=== PATIENT | male | born 1985 | race Caucasian/White ===

== ENCOUNTER 2020-01-31 08:38 | Emergency (ER) | payer OTHER ==
[2020-01-31] MEDS ORDERED: SODIUM CHLORIDE 0.9% 1,000 ML IV STA (09:08)
[2020-01-31] MEDS ORDERED: MORPHINE 2 MG/ML CARPUJECT IVP STA (09:08)
[2020-01-31] MEDS ORDERED: ASPIRIN CHEW 81 MG TABLET PO STA (09:08)
[2020-01-31] MEDS ORDERED: NITROGLYCERIN SL 0.4 MG TABLET SL STA (09:08)
[2020-01-31] MEDS ORDERED: HEPARIN 25000UNITS/500ML (D5W) 25,000 UNIT/500 ML BAG IV STA (09:13)
[2020-01-31] MEDS ORDERED: HEPARIN 5,000 UNIT/ML VIAL IVP STA (09:13)
[2020-01-31] MEDS ORDERED: CLOPIDOGREL 300 MG TABLET PO STA (09:13)
--- NOTE | 2020-01-31 09:13 | ED Physician Documentation ---
PD HPI CHEST PAIN - Stated complaint Stated Complaint: CHEST PX - Chief complaint Chief Complaint: Cardiac - History obtained from History obtained from: Patient - History of Present Illness Timing - onset: How many hours ago (1) Timing - onset during: Light activity (he was walking up some stairs and had abrupt onset chest pain, lightheaded, nausea, sweaty.) Timing - duration: Hours (1) Timing - details: Abrupt onset, Still present Quality: Pressure, Tightness Location: Substernal, Left chest Radiation: Neck Improved by: No: Rest Review of Systems Constitutional: denies: Fever, Chills Nose: denies: Rhinorrhea / runny nose, Congestion Throat: denies: Sore throat Cardiac: reports: Chest pain / pressure (just this morning. No recent exertional CP nor dyspnea.). denies: Palpitations, Pedal edema, Calf pain Respiratory: reports: Dyspnea. denies: Cough, Wheezing GI: denies: Nausea, Diarrhea Skin: denies: Rash (He has not had any rash for about a year.) Neurologic: reports: Headache. denies: Generalized weakness, Focal weakness, Numbness, Near syncope Psychiatric: denies: Depressed Endocrine: denies: Easy bruising / bleeding Immunocompromised: reports: Immunocompromised. denies: Chemotherapy PD PAST MEDICAL HISTORY - Past Medical History Cardiovascular: Hypertension Respiratory: None Neuro: None Endocrine/Autoimmune: None Musculoskeletal: Other (HSP for the past year and is on methotrexate for the past year with stable) - Allergies Allergies/Adverse Reactions: Allergies Allergy/AdvReac Type Severity Reaction Status Date / Time No Known Drug Allergies Allergy Verified 01/31/20 08:41 - Living Situation Living Situation: reports: With spouse/s.o. Living Arrangement: reports: At home - Social History Does the pt smoke?: No Does the pt have substance abuse?: No - Family History Family history: denies: CAD, Sudden PD ED PE NORMAL - Vitals Vital signs reviewed: Yes - General General: Alert and oriented X 3, Well developed/nourished, Other (pale and in pain) - HEENT HEENT: Pharynx benign - Neck Neck: Supple, no meningeal sign, No adenopathy - Cardiac Cardiac: RRR, No murmur - Respiratory Respiratory: Clear bilaterally, Other (no chestwall tenderness) - Abdomen Abdomen: Soft, Non tender - Male Male : Deferred - Rectal Rectal: Deferred - Derm Derm: Warm and dry. No: Normal color (pale) - Extremities Extremities: No deformity, No tenderness to palpate, No edema, No calf tenderness / cord - Neuro Neuro: Alert and oriented X 3, No motor deficit, No sensory deficit, Normal speech Results - Vitals Vitals: Vital Signs - 24 hr 01/31/20 08:41 Temperature 36.6 C Heart Rate 97 Respiratory 20 Rate Blood Pressure 152/103 H O2 Saturation 98 Oxygen O2 Source Room air - EKG (time done) 08:53 Rate: Rate (enter#) (93) Rhythm: NSR [place]: Normal Intervals: Normal [place] QRS: Normal Ischemia: ST elevation c/w ischemia (inferiorly, mostly III but also II and aVF; no reciprocal changes). No: ST depression - Rads (name of study) chest xraY Radiology: Prelim report reviewed, EMP read contemporaneously (no acute process), See rad report PD MEDICAL DECISION MAKING - ED course Complexity details: reviewed results, re-evaluated patient (The patient walked in through triage and was triaged in a typical fashion. EKG was done in a timely fashion and there was short few minutes of deliberation on my part to consult with the physician in [facility] prior to calling the STEMI so was slightly off our nabor on time.), considered differential (Abrupt onset of symptoms suggestive of OH with an EKG showing inferior changes with ST elevations. We will treated as a STEMI at this point. Alternatives would be an aortic process or pericarditis. He has not had any recent cold cough or flu symptoms and chest x-ray does not have a pneumonia appearance so no obvious coronavirus. 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 This would not preclude the clotting of a coronary vessel.), d/w patient, d/w human resources consultant (I talked with the ER physician at [facility] who also reviewed the EKG and we decided together to treat this as a STEMI.) - Critical Care Time(min): 30 Time Includes: Direct patient care, Reassess patient, Document care, Coordinate care, Medical consult Data interpretation: CXR, Prior EKG Procedures excluded from critical care time: EKG Departure - Departure Disposition: 02 Transfer Acute Care Hosp Clinical Impression: STEMI (ST elevation myocardial infarction) Qualifiers: Involved coronary artery: left circumflex coronary artery Qualified Code(s): I21.21 - ST elevation (STEMI) myocardial infarction involving left circumflex coronary artery Condition: Stable Record reviewed to determine appropriate education?: Yes
[2020-01-31 09:19] LABS: BASOPHILS # (AUTO) 0.1 10^3/uL (0.0-0.1); BASOPHILS % (AUTO) 0.5 %; EOSINOPHILS # (AUTO) 0.1 10^3/uL (0.0-0.7); EOSINOPHILS % (AUTO) 1.3 %; HGB - HEMOGLOBIN 17.6 g/dL (14.0-18.0); LYMPHOCYTES # (AUTO) 1.6 10^3/uL (1.5-3.5); LYMPHOCYTES % (AUTO) 16.1 %; MEAN CORPUSCULAR HEMOGLOBIN 32.6 pg (27.0-31.0); MEAN CORPUSCULAR HGB CONC 36.8 g/dL (32.0-36.0); MEAN CORPUSCULAR VOLUME 88.5 fL (80.0-94.0); MEAN PLATELET VOLUME 9.6 fL (7.4-11.4); MONOCYTES # (AUTO) 0.7 10^3/uL (0.0-1.0); MONOCYTES % (AUTO) 6.7 %; NEUTROPHILS # (AUTO) 7.2 10^3/uL (1.5-6.6); NEUTROPHILS % (AUTO) 75.1 %; PLT - PLATELET COUNT 316 10^3/uL (130-450); RED CELL DISTRIBUTION WIDTH 13.5 % (12.0-15.0); WHITE BLOOD COUNT 9.7 x10^3/uL (4.8-10.8)
--- NOTE | 2020-01-31 09:22 | XRAY Report ---
Reason: Chest Pain Procedure Date: 01/31/2020 Accession Number: [id number] / [id number] Procedure: XR - Chest 1 View X-Ray CPT Code: 77842 Final Report FULL RESULT: EXAM: CHEST RADIOGRAPHY EXAM DATE: 01/31/2020 09:05 AM. CLINICAL HISTORY: Chest Pain. COMPARISON: None. TECHNIQUE: 1 view. FINDINGS: Lungs/Pleura: No focal opacities evident. No pleural effusion. No pneumothorax. Mediastinum: Within exam limitations, the cardiomediastinal contour is normal. Other: Metallic structure overlies the lower neck probably external to the body. EKG leads overlie the chest. IMPRESSION: 1. No acute pulmonary process. RADIA
[2020-01-31 09:37] LABS: ALBUMIN 4.5 g/dL (3.2-5.5); ALBUMIN/GLOBULIN RATIO 1.5 (1.0-2.2); BILIRUBIN,TOTAL 1.3 mg/dL (0.2-1.0); CALCIUM 9.3 mg/dL (8.5-10.3); CREATININE 1.2 mg/dL (0.6-1.2); MAGNESIUM 2.2 mg/dL (1.7-2.8); TOTAL PROTEIN 7.6 g/dL (6.7-8.2)
[2020-01-31 09:42] VITALS: BP 152/105
== END 2020-01-31 09:31 | disposition short-term general hospital (02) ==
LOC: ED 08:38
DX: I21.21 ST elevation (STEMI) myocardial infarction involving left circumflex coronary artery (principal); I10 Essential (primary) hypertension; Z86.2 Personal history of diseases of the blood and blood-forming organs and certain disorders involving the immune mechanism
CPT/HCPCS: 36415; 71045; 80053; 83690; 83735; 84484; 85025; 85651; 93005; 96374; 96375; 99285; 99291; A9270

== ENCOUNTER 2020-01-31 09:32 | Outpatient (CLI) | payer OTHER | END 2020-01-31 09:33 | disposition short-term general hospital (02) | LOC: EMS 09:32 | PROVIDERS: ATTEND Surgery | DX: I21.4 Non-ST elevation (NSTEMI) myocardial infarction (principal) | CPT/HCPCS: A0425; A0426 ==

== ENCOUNTER 2020-02-14 12:03 | Emergency (ER) | payer OTHER ==
[2020-02-14 12:38] LABS: BASOPHILS # (AUTO) 0.1 10^3/uL (0.0-0.1); BASOPHILS % (AUTO) 1.2 %; EOSINOPHILS # (AUTO) 0.1 10^3/uL (0.0-0.7); EOSINOPHILS % (AUTO) 1.5 %; HGB - HEMOGLOBIN 17.6 g/dL (14.0-18.0); LYMPHOCYTES # (AUTO) 1.2 10^3/uL (1.5-3.5); LYMPHOCYTES % (AUTO) 20.4 %; MEAN CORPUSCULAR HEMOGLOBIN 32.5 pg (27.0-31.0); MEAN CORPUSCULAR VOLUME 90.4 fL (80.0-94.0); MEAN PLATELET VOLUME 9.8 fL (7.4-11.4); MONOCYTES # (AUTO) 0.6 10^3/uL (0.0-1.0); MONOCYTES % (AUTO) 9.3 %; NEUTROPHILS % (AUTO) 67.3 %; PLT - PLATELET COUNT 311 10^3/uL (130-450); RED BLOOD COUNT 5.41 10^6/uL (4.70-6.10); RED CELL DISTRIBUTION WIDTH 13.3 % (12.0-15.0); WHITE BLOOD COUNT 5.9 x10^3/uL (4.8-10.8)
[2020-02-14] MEDS ORDERED: IBUPROFEN 800 MG TABLET PO STA (12:47)
--- NOTE | 2020-02-14 12:49 | ED Physician Documentation ---
PD HPI CHEST PAIN - Stated complaint Stated Complaint: CHEST PAIN - Chief complaint Chief Complaint: Cardiac - History obtained from History obtained from: Patient - History of Present Illness Timing - onset: How many hours ago (2.5) Timing - onset during: Light activity Timing - duration: Hours (2.5) Timing - details: Abrupt onset Pain level max: 5 Pain level now: 4 Quality: Pressure, Aching Location: Substernal Radiation: No: Jaw, Neck, Back, Abdominal, Left upper extremity, Right upper extremity Improved by: Nothing Worsened by: Other (nothing) Associated symptoms: No: Shortness of air, Diaphoresis, Nausea, Vomiting, Feeling faint / dizzy, General Weakness, Palpitations, Cough Similar symptoms before: Diagnosis (pericarditis/myocarditis) Recently seen: Admitted (recently admitted to [facility] for same and states normal cardiac cath. States diagnosed with pericarditis/myocarditis. Currently on colchicine and stopped motrin last week.) Review of Systems Ten Systems: 10 systems reviewed and negative Constitutional: denies: Fever, Chills Ears: denies: Ear pain Nose: denies: Rhinorrhea / runny nose, Congestion Cardiac: denies: Chest pain / pressure Respiratory: denies: Cough GI: denies: Vomiting, Diarrhea : denies: Dysuria Skin: denies: Rash Musculoskeletal: denies: Neck pain, Back pain Neurologic: denies: Headache PD PAST MEDICAL HISTORY - Past Medical History Past Medical History: Yes Cardiovascular: Hypertension, Other Respiratory: None Neuro: None Endocrine/Autoimmune: Other GI: None : None Psych: None Musculoskeletal: Other Other Past Medical History: pericarditis 01/2020 - Past Surgical History Past Surgical History: Yes Cardiovascular: Cardiac catheterization - Present Medications Home Medications: Ambulatory Orders Medication Instructions Recorded Confirmed Colchicine 0.6 mg PO BID 02/14/20 02/14/20 Folic Acid 1 mg PO DAILY 02/14/20 02/14/20 Ibuprofen [Motrin] 800 mg PO Q8H PRN #30 tablet 02/14/20 Lisinopril [Zestril] 20 mg PO DAILY 02/14/20 02/14/20 azaTHIOprine [Azathioprine] 100 mg PO DAILY 02/14/20 02/14/20 metHOTREXate sodium [Trexall] 15 mg PO ONCE 02/14/20 02/14/20 - Allergies Allergies/Adverse Reactions: Allergies Allergy/AdvReac Type Severity Reaction Status Date / Time No Known Drug Allergies Allergy Verified 01/31/20 08:41 - Social History Does the pt smoke?: No Smoking Status: Former smoker Does the pt drink ETOH?: No Does the pt have substance abuse?: No - Immunizations Immunizations are current?: Yes - POLST Patient has POLST: No PD ED PE NORMAL - Vitals Vital signs reviewed: Yes - General General: Alert and oriented X 3, No acute distress - HEENT HEENT: Moist mucous membranes - Neck Neck: Supple, no meningeal sign - Cardiac Cardiac: RRR, No murmur, Strong equal pulses - Respiratory Respiratory: No respiratory distress, Clear bilaterally - Abdomen Abdomen: Soft, Non tender, Non distended - Derm Derm: Warm and dry - Extremities Extremities: No edema - Neuro Neuro: Alert and oriented X 3 - Psych Psych: Normal mood, Normal affect Results - Vitals Vitals: Vital Signs - 24 hr 02/14/20 02/14/20 02/14/20 12:08 12:37 12:47 Temperature 36.8 C 36.9 C Heart Rate 83 85 89 Respiratory 16 16 18 Rate Blood Pressure 147/94 H 139/97 H 139/97 H O2 Saturation 100 95 98 02/14/20 02/14/20 02/14/20 13:06 13:30 14:00 Temperature Heart Rate 75 79 79 Respiratory 20 14 19 Rate Blood Pressure 145/91 H 154/94 H 144/92 H O2 Saturation 94 95 95 Oxygen O2 Source Room air - EKG (time done) 1208 Rate: Rate (enter#) (81) Rhythm: NSR [place]: Normal Intervals: Normal [place] QRS: Normal Ischemia: ST elevation c/w repol - Labs Labs: Laboratory Tests 02/14/20 02/14/20 02/14/20 12:30 12:30 12:30 WBC 5.9 RBC 5.41 Hgb 17.6 Hct 48.9 MCV 90.4 MCH 32.5 H MCHC 36.0 RDW 13.3 Plt Count 311 MPV 9.8 Neut # (Auto) 4.0 Lymph # (Auto) 1.2 L [place] # (Auto) 0.6 Eos # (Auto) 0.1 Baso # (Auto) 0.1 Absolute Nucleated RBC 0.00 Nucleated RBC % 0.0 Sodium 138 Potassium 3.6 Chloride 99 L Carbon Dioxide 27 Anion Gap 12.0 BUN 6 Creatinine 1.1 Estimated GFR (MDRD) 76 L Glucose 103 H Calcium 9.2 Total Bilirubin 1.2 H AST 59 H ALT 66 H Alkaline Phosphatase 54 Troponin I High Sens 10.9 Total Protein 8.0 Albumin 4.6 Globulin 3.4 Albumin/Globulin Ratio 1.4 Lipase 32 - Rads (name of study) cxr Radiology: Prelim report reviewed, EMP read contemporaneously, See rad report (no acute disease) PD MEDICAL DECISION MAKING - ED course Complexity details: reviewed old records, reviewed results, re-evaluated patient, considered differential, d/w patient, d/w consultant dietitian (Dr. Griffin (cardiology)) ED course: Patient is a 34-year-old male who presents with chest pain. He was recently seen at [facility] where he was diagnosed with pericarditis/myocarditis. Has a history of IgA vasculitis. Normal high- sensitivity troponin here. Pain resolved with Motrin. Discussed the case with cardiology who recommends follow-up in the office and restart on Motrin. Patient did have a clean cardiac cath at [facility]. Patient counseled regarding signs and symptoms for which I believe and urgent re- evaluation would be necessary. Patient with good understanding of and agreement to plan and is comfortable going home at this time This document was made in part using voice recognition software. While efforts are made to proofread this document, sound alike and grammatical errors may occur. Departure - Departure Disposition: 01 Home, Self Care Clinical Impression: Chest pain Qualifiers: Chest pain type: unspecified Qualified Code(s): R07.9 - Chest pain, unspecified Condition: Good Instructions: ED Chest Pain Atypical Unkn Cause Follow-Up: DEANNA SOTO MD [Primary Care Provider] - Britta Griffin MD [Physician No Access] - Prescriptions: Ibuprofen [Motrin] 800 mg PO Q8H PRN #30 tablet PRN Reason: PAIN &/OR FEVER Comments: Return if you worsen. You can use Motrin as needed for pain. Follow-up with cardiology for further care. Continue your colchicine as well. Discharge Date/Time: 02/14/20 14:15
--- NOTE | 2020-02-14 12:50 | XRAY Report ---
Reason: Chest Pain Procedure Date: 02/14/2020 Accession Number: [id number] / [id number] Procedure: XR - Chest 1 View X-Ray CPT Code: 33660 Final Report FULL RESULT: PROCEDURE: Chest 1 View X-Ray INDICATIONS: Chest Pain TECHNIQUE: One view of the chest was acquired. COMPARISON: 01/31/2020 FINDINGS: Surgical changes and devices: None. Lungs and pleura: No pleural effusions or pneumothorax. Lungs are clear. Mediastinum: Mediastinal contours appear normal. Heart size is normal. Bones and chest wall: No suspicious bony lesions. Overlying soft tissues appear unremarkable. IMPRESSION: No acute cardiopulmonary disease process. Reviewed by: Wendy Goff MD, PhD on 02/14/2020 12:46 PM PDT Approved by: Wendy Goff MD, PhD on 02/14/2020 12:46 PM PDT Station ID: [id number]
[2020-02-14 13:02] LABS: ALBUMIN 4.6 g/dL (3.2-5.5); ALBUMIN/GLOBULIN RATIO 1.4 (1.0-2.2); BILIRUBIN,TOTAL 1.2 mg/dL (0.2-1.0); CALCIUM 9.2 mg/dL (8.5-10.3); CREATININE 1.1 mg/dL (0.6-1.2)
[2020-02-14 14:05] VITALS: BP 144/92
== END 2020-02-14 14:15 | disposition home or self-care (01) ==
LOC: ED 12:03
DX: R07.89 Other chest pain (principal); I10 Essential (primary) hypertension; Z86.79 Personal history of other diseases of the circulatory system; Z98.61 Coronary angioplasty status; Z87.891 Personal history of nicotine dependence
CPT/HCPCS: 36415; 71045; 80053; 83690; 84484; 85025; 93005; 99284; A9270

== ENCOUNTER 2020-11-02 12:23 | Emergency (ER) | payer OTHER ==
[2020-11-02] MEDS ORDERED: ASPIRIN CHEW 81 MG TABLET PO STA (12:44)
[2020-11-02] MEDS ORDERED: NITROGLYCERIN SL 0.4 MG TABLET SL STA (12:44)
[2020-11-02] MEDS ORDERED: MORPHINE 2 MG/ML CARPUJECT IVP STA ×2 (12:44→13:15)
[2020-11-02 12:49] LABS: BASOPHILS # (AUTO) 0.1 10^3/uL (0.0-0.1); BASOPHILS % (AUTO) 0.8 %; EOSINOPHILS # (AUTO) 0.2 10^3/uL (0.0-0.7); EOSINOPHILS % (AUTO) 1.3 %; HGB - HEMOGLOBIN 17.7 g/dL (14.0-18.0); LYMPHOCYTES # (AUTO) 2.7 10^3/uL (1.5-3.5); LYMPHOCYTES % (AUTO) 22.2 %; MEAN CORPUSCULAR HEMOGLOBIN 29.8 pg (27.0-31.0); MEAN CORPUSCULAR HGB CONC 34.8 g/dL (32.0-36.0); MEAN CORPUSCULAR VOLUME 85.7 fL (80.0-94.0); MEAN PLATELET VOLUME 9.3 fL (7.4-11.4); MONOCYTES # (AUTO) 1.3 10^3/uL (0.0-1.0); MONOCYTES % (AUTO) 10.5 %; NEUTROPHILS # (AUTO) 7.9 10^3/uL (1.5-6.6); NEUTROPHILS % (AUTO) 64.3 %; PLT - PLATELET COUNT 355 10^3/uL (130-450); RED BLOOD COUNT 5.93 10^6/uL (4.70-6.10); RED CELL DISTRIBUTION WIDTH 12.4 % (12.0-15.0); WHITE BLOOD COUNT 12.2 x10^3/uL (4.8-10.8)
--- NOTE | 2020-11-02 12:55 | ED Physician Documentation ---
PD HPI CHEST PAIN - Stated complaint Stated Complaint: chest px - Chief complaint Chief Complaint: Cardiac - History obtained from History obtained from: Patient - History of Present Illness Timing - onset: Today Pain level max: 8 Pain level now: 8 Quality: Pressure, Tightness, Aching Location: Substernal Radiation: No: Jaw, Neck, Back, Abdominal, Left upper extremity, Right upper extremity Improved by: Nitro Worsened by: Other (noting) Associated symptoms: Diaphoresis, Nausea, General Weakness. No: Shortness of air, Vomiting, Palpitations - Additional information Additional information: 35-year-old male presents to the emergency department stating he has had intermittent chest pain since this morning. Became constant about 45 minutes prior to arrival. He states that it is substernal, crushing, nonradiating. Improved with nitroglycerin. Has had this twice in the past. The first time was in January of last year, had a normal coronary angiogram at [facility]. The second time was in September of this year, seen in [place] had another coronary angiogram which was reportedly normal as well. He states he did run out of some of his medications at home so has not been taking all of them. Unclear what these medications are. Nothing makes the pain worse. Better with nitroglycerin. Did not take aspirin today. Review of Systems Ten Systems: 10 systems reviewed and negative Constitutional: denies: Fever, Chills Nose: denies: Rhinorrhea / runny nose, Congestion Throat: denies: Sore throat Cardiac: reports: Chest pain / pressure Respiratory: denies: Cough GI: denies: Nausea, Vomiting, Diarrhea Skin: denies: Rash Musculoskeletal: denies: Neck pain, Back pain Neurologic: denies: Headache PD PAST MEDICAL HISTORY - Past Medical History Cardiovascular: Hypertension, Other Respiratory: None Neuro: None Endocrine/Autoimmune: Other GI: None : None Psych: None Musculoskeletal: Other - Past Surgical History Past Surgical History: Yes Cardiovascular: Cardiac catheterization - Present Medications Home Medications: Ambulatory Orders Medication Instructions Recorded Confirmed Colchicine 0.6 mg PO BID 02/14/20 02/14/20 Folic Acid 1 mg PO DAILY 02/14/20 02/14/20 Ibuprofen [Motrin] 800 mg PO Q8H PRN #30 tablet 02/14/20 Lisinopril [Zestril] 20 mg PO DAILY 02/14/20 02/14/20 azaTHIOprine [Azathioprine] 100 mg PO DAILY 02/14/20 02/14/20 metHOTREXate sodium [Trexall] 15 mg PO ONCE 02/14/20 02/14/20 - Allergies Allergies/Adverse Reactions: Allergies Allergy/AdvReac Type Severity Reaction Status Date / Time No Known Drug Allergies Allergy Verified 01/31/20 08:41 - Social History Does the pt smoke?: No Smoking Status: Former smoker Does the pt drink ETOH?: No Does the pt have substance abuse?: No - Immunizations Immunizations are current?: Yes - POLST Patient has POLST: No PD ED PE NORMAL - Vitals Vital signs reviewed: Yes - General General: Alert and oriented X 3, No acute distress, Other (appears uncomfortable) - HEENT HEENT: Moist mucous membranes, Other - Neck Neck: Supple, no meningeal sign - Cardiac Cardiac: RRR, Strong equal pulses - Respiratory Respiratory: No respiratory distress, Clear bilaterally - Abdomen Abdomen: Soft, Non tender, Non distended - Derm Derm: Warm and dry - Extremities Extremities: No edema, No calf tenderness / cord - Neuro Neuro: Alert and oriented X 3 - Psych Psych: Normal mood, Normal affect Results - Vitals Vitals: Vital Signs - 24 hr 11/02/20 11/02/20 12:31 13:00 Temperature 36.6 C Heart Rate 88 84 Respiratory 18 18 Rate Blood Pressure 179/100 H 152/96 H O2 Saturation 97 96 Oxygen O2 Source Room air - EKG (time done) 1231 Rate: Rate (enter#) (87) Rhythm: NSR [place]: Normal Ischemia: ST elevation c/w ischemia (V2-4), ST depression (III) 1245 Rate: Rate (enter#) (87) Rhythm: NSR [place]: Normal Ischemia: ST elevation c/w ischemia (V2-5), ST depression (III, AVF) 1257 Rate: Rate (enter#) (78) Rhythm: NSR [place]: Normal Intervals: Normal [place] Ischemia: ST elevation c/w ischemia (V2-5), ST depression (III, aVF) - Labs Labs: Laboratory Tests 11/02/20 11/02/20 11/02/20 12:40 12:40 12:40 WBC 12.2 H RBC 5.93 Hgb 17.7 Hct 50.8 MCV 85.7 MCH 29.8 MCHC 34.8 RDW 12.4 Plt Count 355 MPV 9.3 Neut # (Auto) 7.9 H Lymph # (Auto) 2.7 [place] # (Auto) 1.3 H Eos # (Auto) 0.2 Baso # (Auto) 0.1 Absolute Nucleated RBC 0.00 Nucleated RBC % 0.0 PT INR APTT Sodium 138 Potassium 3.5 Chloride 100 L Carbon Dioxide 23 Anion Gap 15.0 H BUN 10 Creatinine 1.0 Estimated GFR (MDRD) 85 L Glucose 130 H Calcium 9.1 Total Bilirubin 0.9 AST 38 ALT 53 Alkaline Phosphatase 67 Troponin I High Sens 16.7 Total Protein 7.9 Albumin 4.5 Globulin 3.4 Albumin/Globulin Ratio 1.3 Lipase 32 11/02/20 13:15 WBC RBC Hgb Hct MCV MCH MCHC RDW Plt Count MPV Neut # (Auto) Lymph # (Auto) [place] # (Auto) Eos # (Auto) Baso # (Auto) Absolute Nucleated RBC Nucleated RBC % PT 14.2 H INR 1.3 H APTT > 240.0 H* Sodium Potassium Chloride Carbon Dioxide Anion Gap BUN Creatinine Estimated GFR (MDRD) Glucose Calcium Total Bilirubin AST ALT Alkaline Phosphatase Troponin I High Sens Total Protein Albumin Globulin Albumin/Globulin Ratio Lipase - Rads (name of study) cxr Radiology: Prelim report reviewed, EMP read contemporaneously, See rad report (no acute findings) PD MEDICAL DECISION MAKING - ED course Complexity details: reviewed results, re-evaluated patient, considered differential, d/w patient, d/w etl consultant (Dr. Larsen) ED course: Patient with intermittent chest pain throughout the morning. 2 normal coronary angiograms within the past 9 months. Serial EKGs do show dynamic changes and worsening of the ST elevation. Therefore this was treated as an ST elevation [place]. Differential would also include vasculitis, myocarditis, vasospasm, coronary artery dissection. Patient was given aspirin. Discussed Plavix with the ER at [facility], they suggest holding it at this time. Patient was also given nitroglycerin. 20 mg of diltiazem per cardiology, started on a nitroglycerin drip and heparin drip. Pain improved. Patient did have a short run of what appeared to be ventricular tachycardia while in the emergency department, lasted about 15 seconds. Pain is improved, down to a 2-3 out of 10. Patient trans ported to [facility] for further care. Activated as a STEMI. Discussed with Dr. Larsen, ER physician at [facility] who graciously accepts in transfer. COBRA forms completed Departure - Departure Disposition: 02 Transfer Acute Care Hosp Clinical Impression: STEMI (ST elevation myocardial infarction) Qualifiers: Involved coronary artery: unspecified coronary artery Qualified Code(s): I21.3 - ST elevation (STEMI) myocardial infarction of unspecified site Condition: Stable Discharge Date/Time: 11/02/20 13:25
[2020-11-02] MEDS ORDERED: HEPARIN 25000UNITS/500ML (D5W) 25,000 UNIT/500 ML BAG IV SCH (13:00)
[2020-11-02] MEDS ORDERED: DILTIAZEM 125 MG in DEXTROSE 5% 100 ML IV STA (13:00)
[2020-11-02] MEDS ORDERED: NITROGLYCERIN 50 MG/250 ML 50 MG/250 ML BOTTLE IV STA (13:01)
[2020-11-02 13:03] LABS: ALBUMIN 4.5 g/dL (3.2-5.5); ALBUMIN/GLOBULIN RATIO 1.3 (1.0-2.2); BILIRUBIN,TOTAL 0.9 mg/dL (0.2-1.0); CALCIUM 9.1 mg/dL (8.5-10.3); TOTAL PROTEIN 7.9 g/dL (6.7-8.2)
[2020-11-02] MEDS ORDERED: diltiaZEM INJ 5 MG/ML VIAL IVP STA (13:11)
[2020-11-02] MEDS ORDERED: HEPARIN 5,000 UNIT/ML VIAL ONE ×2 (13:13→13:16)
[2020-11-02] MEDS ORDERED: diltiaZEM INJ 5 MG/ML VIAL ONE (13:23)
[2020-11-02 13:30] LABS: INR 1.3 (0.8-1.2); PT - PROTHROMBIN TIME 14.2 secs (9.9-12.6)
[2020-11-02 13:32] VITALS: BP 152/96
[2020-11-02 13:51] LABS: PARTIAL THROMBOPLASTIN TIME > 240.0 secs (24.9-33.3)
--- NOTE | 2020-11-02 14:07 | XRAY Report ---
PROCEDURE: Chest 1 View X-Ray INDICATIONS: Chest Pain TECHNIQUE: One view of the chest was acquired. COMPARISON: 02/14/2020 FINDINGS: Surgical changes and devices: None. Lungs and pleura: No pleural effusions or pneumothorax. Lungs are clear. Mediastinum: Mediastinal contours appear normal. Heart size is normal. Bones and chest wall: No suspicious bony lesions. Overlying soft tissues appear unremarkable. IMPRESSION: Normal chest. Reviewed by: Chiara Gerard MD on 11/02/2020 12:01 PM [facility] Approved by: Chiara Gerard MD on 11/02/2020 12:01 PM [facility] Station ID: [id number]
== END 2020-11-02 13:25 | disposition short-term general hospital (02) ==
LOC: ED 12:23
DX: I21.3 ST elevation (STEMI) myocardial infarction of unspecified site (principal); I49.9 Cardiac arrhythmia, unspecified; Z98.61 Coronary angioplasty status; I10 Essential (primary) hypertension; Z87.891 Personal history of nicotine dependence
CPT/HCPCS: 36415; 71045; 80053; 83690; 84484; 85025; 85610; 85730; 93005; 96374; 96375; 99285; A9270

== ENCOUNTER 2020-11-02 13:23 | Outpatient (CLI) | payer OTHER | END 2020-11-02 13:24 | disposition short-term general hospital (02) | LOC: EMS 13:23 | DX: I21.3 ST elevation (STEMI) myocardial infarction of unspecified site (principal) | CPT/HCPCS: A0425; A0426 ==

== ENCOUNTER 2021-01-19 09:14 | Outpatient (CLI) | payer OTHER ==
[2021-01-19 10:03] VITALS: BP 101/65
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
== END 2021-01-19 09:15 | disposition home or self-care (01) ==
LOC: SC 09:14
PROVIDERS: ATTEND Nurse Practitioner Family
DX: G47.10 Hypersomnia, unspecified (principal); G47.8 Other sleep disorders; E66.9 Obesity, unspecified; Z68.32 Body mass index [BMI] 32.0-32.9, adult
CPT/HCPCS: 99203; 99212

== ENCOUNTER 2021-03-01 19:19 | Outpatient (CLI) | payer OTHER | END 2021-03-01 19:20 | disposition home or self-care (01) | LOC: SC 19:19 | PROVIDERS: ATTEND Nurse Practitioner Family | DX: G47.33 Obstructive sleep apnea (adult) (pediatric) (principal); G47.61 Periodic limb movement disorder; E66.9 Obesity, unspecified; Z68.32 Body mass index [BMI] 32.0-32.9, adult | CPT/HCPCS: 95810 ==

== ENCOUNTER 2021-03-20 13:43 | Outpatient (CLI) | payer OTHER ==
--- NOTE | 2021-03-20 14:12 | SLEEP CARE CONSULTATION ---
Information from patient questionnaire entered by Chelita Pickens. I have reviewed and concur with the information entered by Chelita Pickens. This document represents the service I personally performed and the decisions made by , Magalis Nicole ARNP. History of Present Illness Service Date and Time: 03/20/2021 1343 Initial [place] Sleepiness Scale score: 9 (in 2020) Current [place] Sleepiness Scale score: 9 Additional HPI information: KERRI KAYE returns for follow up and results of the recently performed polysomnography. I explained the pathophysiology behind obstructive sleep apnea. We then spent quite a bit of time discussing different treatment options. For mild obstructive sleep apnea, surgery and oral appliance are alternatives to nasal CPAP therapy but in moderate or severe cases, nasal CPAP is the most effective and reliable treatment. Because apnea is primarily in supine position, then positional management therapy could be effective. Methods discussed such as positioning with pillows, using a T-shirt with tennis balls in the back, and shown commercial products that have a pillow format on back to prevent supine sleep. I reviewed the impact of weight changes on sleep apnea and strongly recommended losing weight. After some discussion, the patient opted to go with the nasal CPAP therapy. Nasal autoCPAP set at 4-15 cmH20 will be ordered with rationale explained. A manual titration study will be ordered if unable to find optimal pressure with office adjustments. I explained how CPAP machine works with sample devices Respironics Dreamstation and ResBooodl [id number] and what to expect when using the machine. Using CPAP every night in order to get used to it was emphasized. Patient advised to put CPAP mask on before getting into bed so as not to fall asleep without CPAP. To assist acclimation to CPAP use, it could also be used for a short time during day while reading or watching TV. The patient was instructed to call the CPAP supplier to discuss any mechanical problem that may occur. If the mask given is uncomfortable or is difficult to keep on through the night even with adjustment, contact the CPAP supplier as many will replace with another mask style if notified before 30 days. If snoring or perceives is not getting enough air or too much air from the machine, notify this office. [facility] patient education PAP tips reviewed and given to patient. Patient counseled not drink alcohol less than 4 hours before bedtime as it can increase snoring and apnea. Patient was cautioned about risks of drowsy driving until sleepiness symptoms resolve. Sleep Study - Results Type of Sleep Study: Polysomnography Prior sleep studies: No Polysomnography/Home Sleep Study results: IMPRESSION: The quality of the study is good. The patient had normal sleep efficiency. Except for mild sleep fragmentation, the sleep architecture was normal. Respiratory monitoring showed mild obstructive sleep apneahypopnea (AHI = 5.9) associated with frequent arousals, oxyhemoglobin desaturation and minimal hypoxia (cong oxygen saturation of 89%). The respiratory events occurred almost exclusively during supine sleep (supine AHI = 8.1; non-supine = 3.70). Snore was light to moderate in intensity. There was mild periodic leg movement of sleep not contributing to the sleep fragmentation. Cardiac rhythm was normal sinus rhythm without significant arrhythmia. No abnormal behavior (parasomnia) observed during the night. Allergies and Home Medications Home medication list reviewed: Yes (no changes) Review of Systems Review of systems same as previous: Yes (no changes) Physical Exam Heart Rate: 60 O2 Saturation: 96 Height: 5 ft 7 in Weight: 209 lb Body Mass Index: 32.7 BMI Classification: Obese Impression and Plan 1. Obstructive Sleep Apnea-Hypopnea Syndrome, mild, with lowest oxygen saturation of 89%. Obviously this is the cause of the patients symptoms of unrefreshed sleep, and excessive daytime sleepiness. Positive pressure therapy could benefit hypertension and coronary heart disease. As mentioned above, the patient will be started on nasal autoCPAP therapy with pressure set at 4-15 cmH2 O. A manual titration study will be completed if unable to find optimal treatment pressure with office adjustments. Compliance guidelines also reviewed. A copy of compliance guidelines will be given for reference at check out. Because the apnea is more severe supine, I instructed to avoid sleeping supine using pillow positioning until able to start CPAP use. * Nasal auto CPAP therapy, pressure at 4-15 cm H2O. * Attempt to lose weight. * Avoid alcohol consumption near bedtime. * Avoid supine sleep until using CPAP. * The patient is again cautioned about driving until sleepiness completely resolves. * Return one month after CPAP obtained. I will assess response to therapy and compliance at that time. Counseling Topics: Weight loss health impact Visit Type: In Office Time Spent with Patient (minutes): 20 Provider Statement: I spent 100% of the Face to Face Visit with the patient with greater than 50% spent counseling the patient and coordination of care.
== END 2021-03-20 13:44 | disposition home or self-care (01) ==
LOC: SC 13:43
PROVIDERS: ATTEND Nurse Practitioner Family
DX: G47.33 Obstructive sleep apnea (adult) (pediatric) (principal); E66.9 Obesity, unspecified; Z68.32 Body mass index [BMI] 32.0-32.9, adult
CPT/HCPCS: 99212; 99213